=== PATIENT | female | born 1955 | race Asian ===

== ENCOUNTER 2017-05-21 10:26 | Emergency (ER) | payer OTHER ==
[~2017-05-21] VITALS: Ht 157.5 cm; Wt 69.0 kg
[2017-05-21 10:46] VITALS: Ht 157.5 cm; Wt 69.0 kg
[2017-05-21 11:42] LABS: CARBON DIOXIDE 23.6 mmol/L (21-32); CREATININE SERUM 1.1 mg/dL (0.6-1.0)
[2017-05-21 11:56] LABS: ALBUMIN 3.4 g/dL (3.4-5.0); BILIRUBIN TOTAL 1.35 mg/dL (0.20-1.00); FREE T4 1.73 ng/dL (0.76-1.46); MAGNESIUM 1.8 mg/dL (1.8-2.4); TOTAL PROTEIN, SERUM 7.5 g/dL (6.4-8.2)
[2017-05-21 12:10] LABS: BASOPHIL % 0.1 % (0-2); PLATELET COUNT 137 x10^3mcL (130-400); RED CELL DISTRIBUTION WIDTH 14.5 % (11.5-14.5)
[2017-05-21 12:47] LABS: microscopic required? YES; urine erythrocyte 1+ (NEGATIVE)
[2017-05-21 14:14] LABS: CALCIUM 7.8 mg/dL (8.5-10.1); CARBON DIOXIDE 22.2 mmol/L (21-32); CHLORIDE SERUM 101 mmol/L (98-107); CREATININE SERUM 0.9 mg/dL (0.6-1.0); GFR1 > 60 mL/min; GLUCOSE SERUM 220 mg/dL (74-106); POTASSIUM SERUM 3.7 mmol/L (3.5-5.1); SODIUM SERUM 133 mmol/L (136-145)
[2017-05-21] MEDS ORDERED: METOPROLOL SUCC25 M2 PO (14:21)
[2017-05-21] MEDS ORDERED: PANTOPRAZOLE SO40 M1 PO (14:21)
[2017-05-21] MEDS ORDERED: TRAMADOL HCL50 MG PO (14:21)
[2017-05-21] MEDS ORDERED: LIPI20 (14:22)
[2017-05-21] MEDS ORDERED: BONINE25 MG (14:22)
[2017-05-21] MEDS ORDERED: GLUCOTROL5 MG PO (14:22)
[2017-05-21] MEDS ORDERED: METFORMIN HCL1000 MG PO (14:22)
[2017-05-21] MEDS ORDERED: COUMADIN10 MG (14:22)
[2017-05-21] MEDS ORDERED: MYCC (14:23)
[2017-05-21] MEDS ORDERED: MONTELUKAST SOD10 M1 PO (14:23)
[2017-05-21 14:52] VITALS: BP 106/76
== END 2017-05-21 14:52 | disposition home or self-care (01) ==
LOC: ED 10:26
PROVIDERS: Emergency Medicine
DX: E86.0 Dehydration (principal); I10 Essential (primary) hypertension; E11.9 Type 2 diabetes mellitus without complications; E78.00 Pure hypercholesterolemia, unspecified
CPT/HCPCS: 84439; 87804; J7030

== ENCOUNTER 2017-05-24 10:28 | Emergency (ER) | payer OTHER ==
[~2017-05-24] VITALS: Ht 157.5 cm; Wt 69.8 kg
[~2017-05-24 10:28] MED LIST: BONINE25 MG; COUMADIN10 MG; GLUCOTROL5 MG PO; LIPI20; METFORMIN HCL1000 MG PO; METOPROLOL SUCC25 M2 PO; MONTELUKAST SOD10 M1 PO; MYCC; PANTOPRAZOLE SO40 M1 PO; TRAMADOL HCL50 MG PO
[2017-05-24 11:59] VITALS: BP 134/74
== END 2017-05-24 11:40 | disposition home or self-care (01) ==
LOC: ED 10:28
DX: R78.81 Bacteremia (principal); I10 Essential (primary) hypertension; E11.9 Type 2 diabetes mellitus without complications; E78.00 Pure hypercholesterolemia, unspecified
CPT/HCPCS: J0696

== ENCOUNTER 2017-06-29 10:40 | Inpatient (IN) | payer OTHER ==
[~2017-06-29] VITALS: Ht 157.5 cm; Wt 68.3 kg
[2017-06-29 10:46] VITALS: Ht 157.5 cm; Wt 68.3 kg
[2017-06-29 12:03] LABS: BASOPHIL % 0.1 % (0-2); PLATELET COUNT 327 x10^3mcL (130-400); RED CELL DISTRIBUTION WIDTH 14.4 % (11.5-14.5)
[2017-06-29 12:05] LABS: CALCIUM 8.8 mg/dL (8.5-10.1); CHLORIDE SERUM 95 mmol/L (98-107); CREATININE SERUM 0.9 mg/dL (0.6-1.0); GFR1 > 60 mL/min; GLUCOSE SERUM 190 mg/dL (74-106); POTASSIUM SERUM 3.7 mmol/L (3.5-5.1); SODIUM SERUM 133 mmol/L (136-145)
[2017-06-29 12:09] LABS: ALKALINE PHOSPHATASE 85 U/L (46-116); ALT/SGPT 28 U/L (14-59); AST/SGOT 30 U/L (15-37); TOTAL PROTEIN, SERUM 7.1 g/dL (6.4-8.2)
[2017-06-29 12:10] LABS: ALBUMIN 2.9 g/dL (3.4-5.0)
[2017-06-29 12:53] LABS: UA SPECIFIC GRAVITY 1.015 (1.005-1.035); microscopic required? YES; urine erythrocyte TRACE (NEGATIVE)
[2017-06-29] MEDS ORDERED: MYCOC TOP (13:06)
[2017-06-29] MEDS ORDERED: MONTELUKAST SOD10 M1 PO (13:07)
[2017-06-29] MEDS ORDERED: METFORMIN HCL1000 MG PO (13:07)
[2017-06-29] MEDS ORDERED: ZOLOFT50 MG PO (13:07)
[2017-06-29] MEDS ORDERED: COUMADIN3 MG PO (13:08)
[2017-06-29] MEDS ORDERED: PANTOPRAZOLE SO40 M1 PO ×2 (13:08→13:09)
[2017-06-29] MEDS ORDERED: METOPROLOL TART25 M1 PO (13:09)
[2017-06-29] MEDS ORDERED: LIPI20 PO (13:09)
[2017-06-29] MEDS ORDERED: GLUCOTROL5 MG PO (13:10)
[2017-06-29 14:59] LABS: MAGNESIUM 1.8 mg/dL (1.8-2.4); PHOSPHOROUS 1.9 mg/dL (2.5-4.9)
[2017-06-29 15:02] LABS: CHOLESTEROL/HDL RATIO 3.7
[2017-06-29 15:11] LABS: FREE T4 2.04 ng/dL (0.76-1.46)
[2017-06-29 15:18] LABS: FREE THYROXINE INDEX 4.8 ug/dL (1.4-4.5); T4(THYROXINE) 13.7 ug/dL (4.7-13.3)
[2017-06-29 16:12] VITALS: BP 109/63
[2017-06-29 16:28] LABS: T3 TOTAL 0.73 ng/mL
[2017-06-29 17:38] LABS: AMPHETAMINE QUAL UR NONE DETECTED (NEG <=1000)
[2017-06-29 20:58] VITALS: BP 94/65
[2017-06-30] VITALS (7 sets, daily range): BP systolic 104–124; BP diastolic 68–85
[2017-06-30 06:43] LABS: CALCIUM 7.9 mg/dL (8.5-10.1); CARBON DIOXIDE 24.1 mmol/L (21-32); CHLORIDE SERUM 102 mmol/L (98-107); CREATININE SERUM 0.8 mg/dL (0.6-1.0); GFR1 > 60 mL/min; GLUCOSE SERUM 164 mg/dL (74-106); MAGNESIUM 1.9 mg/dL (1.8-2.4); PHOSPHOROUS 4.3 mg/dL (2.5-4.9); POTASSIUM SERUM 3.8 mmol/L (3.5-5.1); SODIUM SERUM 138 mmol/L (136-145)
[2017-06-30 06:58] LABS: BASOPHIL % 0.1 % (0-2); PLATELET COUNT 294 x10^3mcL (130-400); RED CELL DISTRIBUTION WIDTH 14.7 % (11.5-14.5)
[2017-06-30] MEDS ORDERED: LAC PO (17:03)
[2017-06-30] MEDS ORDERED: ROC1PM IV (17:03)
== END 2017-06-30 18:59 | disposition short-term general hospital (02) | DRG 871 ==
LOC: ED 10:40 → DU 12:50
PROVIDERS: Emergency Medicine; Family Medicine
DX: A41.9 Sepsis, unspecified organism (principal); N17.0 Acute kidney failure with tubular necrosis; I33.0 Acute and subacute infective endocarditis; E87.1 Hypo-osmolality and hyponatremia; E44.0 Moderate protein-calorie malnutrition; I10 Essential (primary) hypertension; E78.00 Pure hypercholesterolemia, unspecified; E78.5 Hyperlipidemia, unspecified; F32.9 Major depressive disorder, single episode, unspecified; E11.65 Type 2 diabetes mellitus with hyperglycemia; E87.8 Other disorders of electrolyte and fluid balance, not elsewhere classified; Z68.28 Body mass index [BMI] 28.0-28.9, adult; E83.39 Other disorders of phosphorus metabolism
CPT/HCPCS: 82962; 83880; 84439; 97110-GP; 97530-GP; J0696; J1100; J1580; J1815; J1885; J2270; J2405; J3490; J7030; Q0092

== ENCOUNTER 2018-06-12 21:37 | Emergency (ER) | payer OTHER ==
[~2018-06-12] VITALS: Ht 170.2 cm; Wt 70.8 kg
[~2018-06-12 21:37] MED LIST changes: +COUMADIN3 MG PO; +LAC PO; +LIPI20 PO; +METOPROLOL TART25 M1 PO; +MYCOC TOP; +ROC1PM IV; +ZOLOFT50 MG PO
[2018-06-12 21:45] VITALS: Ht 170.2 cm; Wt 70.8 kg
[2018-06-12 22:41] LABS: CALCIUM 8.9 mg/dL (8.5-10.1); CARBON DIOXIDE 28.1 mmol/L (21-32); CHLORIDE SERUM 100 mmol/L (98-107); CREATININE SERUM 0.9 mg/dL (0.6-1.0); GFR1 > 60 mL/min; GLUCOSE SERUM 197 mg/dL (74-106); POTASSIUM SERUM 4.2 mmol/L (3.5-5.1); SODIUM SERUM 136 mmol/L (136-145)
[2018-06-12 22:47] LABS: BASOPHIL % 0.3 % (0-2); PLATELET COUNT 303 x10^3mcL (130-400)
[2018-06-12 22:50] LABS: RED CELL DISTRIBUTION WIDTH 15.9 % (11.5-14.5)
[2018-06-12 22:53] LABS: ALBUMIN 3.9 g/dL (3.4-5.0); ALKALINE PHOSPHATASE 93 U/L (46-116); ALT/SGPT 23 U/L (14-59); AST/SGOT 16 U/L (15-37); BILIRUBIN TOTAL 0.89 mg/dL (0.20-1.00); T4(THYROXINE) 11.9 ug/dL (4.7-13.3); TOTAL PROTEIN, SERUM 7.6 g/dL (6.4-8.2)
[2018-06-13 01:49] VITALS: BP 143/86
== END 2018-06-13 01:49 | disposition home or self-care (01) ==
LOC: ED 21:37
PROVIDERS: Emergency Medicine
DX: J06.9 Acute upper respiratory infection, unspecified (principal); J45.30 Mild persistent asthma, uncomplicated; I10 Essential (primary) hypertension; E11.9 Type 2 diabetes mellitus without complications
CPT/HCPCS: 36415; 87804; Q0092